=== PATIENT | male | born 1960 | race Caucasian/White ===

== ENCOUNTER 2018-08-30 02:13 | Outpatient (CLI) | payer MEDICAID, SELFPAY ==
[2018-08-30 09:20] LABS: ALT 61 U/L (12-78); AST 55 U/L (15-37); Alkaline Phosphatase 187 U/L (46-116); Anion Gap 7.3 mmol/L (3-11); Bilirubin, Total 0.5 mg/dL (0.2-1.0); CO2 29.7 mmol/L (21.0-32.0); CREATININE 0.95 mg/dL (0.70-1.30); Chloride 98 mmol/L (98-107); Glucose 87 mg/dL (70-100); Potassium 4.2 mmol/L (3.5-5.1); Sodium 135 mmol/L (136-145)
--- NOTE | 2018-08-30 09:55 | DI.CTLCSR_ITS ---
SYMPTOMS/DIAGNOSIS: CURRENT SMOKER, F17.[address] FOR LUNG CANCER SCREENING: A low dose exam was performed. There are no prior comparison exams. There are no suspicious pulmonary nodules. No infiltrates, pleural or pericardial effusions or adenopathy is seen. There are coronary artery calcifications and minimal aortic calcifications. There is mild bilateral gynecomastia. There are mild emphysematous changes greatest at the lung apices. There is minimal scarring in the inferior lingula. Prominent osteophytes are seen in the spine. IMPRESSION: Lung Rads Category I. Continued annual screening CT is recommended.
--- NOTE | 2018-08-30 10:06 | DI.CT_ITS ---
SYMPTOMS/DIAGNOSIS: ENLARGED LIVER ABDOMEN CT: There are no prior comparison exams. Images were performed from the lung bases through the aortic bifurcation after IV contrast. Arterial and venous phase exams were performed. The liver shows heterogeneous decreased attenuation throughout. The liver appears mildly enlarged. There is some enlargement of the caudate lobe. No focal liver lesions or biliary dilatation is seen. The spleen is normal in size. The gallbladder appears normal. The pancreas, adrenals and kidneys are unremarkable. There are mildly enlarged lymph nodes in the anna hepatis and para-aortic region. The findings could be infectious or inflammatory. No varices are identified. The aorta is normal in diameter and shows calcification. There is no evidence of ascites. The visualized portions of the bowel are unremarkable. IMPRESSION: Mildly enlarged heterogeneous liver could be secondary to fatty infiltration or early cirrhosis. Infectious cause such as hepatitis could also be considered. No focal mass or biliary dilatation is seen.
[2018-08-30] MEDS: Omnipaque 350 MG/ML 100 ML BTL IJ (10:20)
== END 2018-08-30 02:33 ==
PROVIDERS: PCP General Practice; Visit Provider General Practice
DX: I25.10 Atherosclerotic heart disease of native coronary artery without angina pectoris (principal); I10 Essential (primary) hypertension; R16.0 Hepatomegaly, not elsewhere classified; F17.210 Nicotine dependence, cigarettes, uncomplicated; J43.9 Emphysema, unspecified; J98.4 Other disorders of lung; Z12.2 Encounter for screening for malignant neoplasm of respiratory organs
CPT/HCPCS: 80051; 82947; G0297; 74160; 82247; 82565; 84075; 84450; 84460; J3490

== ENCOUNTER 2018-11-04 06:00 | Day surgery (SDC) | payer MEDICAID, SELFPAY ==
--- NOTE | 2018-11-04 06:17 | W.COLOREPORT ---
Date of service: 11/04/18 Time of Service: : Colonoscopy Report Date of procedure: 11/04/18 Pre-op diagnosis general: Hx of polyps Post-op diagnosis procedure note: other (10 Polyps and sigmoid diverticulosis) Procedure: Colonoscopy with polypectomy by hot snare and forceps Surgeon: Miranda Kenny Anesthesia proc note operative: other (General/ ASA 2/ Tien Mchugh, ANDREW) Estimated blood loss (mL): 5 Pathology: other (10 polyps) Complications: None Disposition: same day Indications: Mr. Gordillo is a pleasant 57 year old male who was seen in the office for a repeat colonoscopy. He was noted to have 3 Tubular adenomas in 2013. Risks, benefits and complications have been reviewed. Complications include but are not limited to bleeding, pain, perforation, missed small lesion/polyp, sore throat, aspiration and adverse reaction to the medications. Questions were entertained and answered to their satisfaction and they wished to proceed. No guarantees were given or implied. Prep: Miralax/Dulcolax Procedure Start Time: :27 Procedure End Time: 08:38 Retraction Time: 68 minutes Findings: Multiple sessile polyps and mild diverticulosis Procedure Description: After informed consent was obtained the patient was taken to the procedure room and placed in a left decubitous position. Monitors were applied and a time out was done. The patients name, date of , procedure, allergies to medications and metal in their body was reviewed. The patient was then sedated. Once sedated and comfortable a rectal exam was done. External exam was normal. Internal exam revealed a normal sphincter tone and no palpable masses. The prostate smooth. The scope was then introduced and retro-flexed. No internal hemorrhoids were identified. There was one small polyps identified. The scope was then advanced to the cecum without difficulty. The TI and appendiceal orifice were identified. The prep was adequate. The scope was then slowly retracted over 68 minutes back into the rectum. Polyps were removed with a hot snare in the ascending colon X1 and with cold forceps in the ascending colon x1, Transverse colon X1, Descending colon X1, Sigmoid colon X2, rectal X1. The scope was removed and the patient was woken up and taken back to Same day surgery in stable condition. The patient tolerated the procedure well and there were no immediate complications. Follow up: The patient should follow up in 3 years unless they develop changes in bowel habits or other new gastrointestinal complaints.
--- NOTE | 2018-11-04 06:20 | W.PM.DSUDISC ---
Discharge Plan Disposition Patient Disposition: HOME Condition: Good Discharge Details Reason For Visit: Colonoscopy Attending Provider: iMranda Kenny Primary Care Provider: Tien Palafox Home Meds and New Rx's Prescriptions: Continued aspirin 81 mg tablet,delayed release (DR/EC) 81 mg PO DAILY RF: 0 atorvastatin [Lipitor] 20 mg tablet 20 mg PO DAILY RF: 0 lisinopril 5 mg tablet 5 mg PO DAILY RF: 0 metoprolol succinate 100 mg cap,sprinkle,ER 24hr dose pack 100 mg PO DAILY RF: 0 Discontinued polyethylene glycol 3350 17 gram/dose powder 238 g PO ONCE Qty: 238 RF: 0 bisacodyl [Dulcolax (bisacodyl)] 5 mg tablet,delayed release (DR/EC) 5 mg PO ONCE Qty: 4 RF: 0 Discharge Instructions Instructions: Colonoscopy (DC), Colorectal Polyps (DC), Diverticulosis (DC) Additional Instructions: Findings: 10 polyps Diverticulosis Follow up: 3 years most likely Please call if you develop: fevers >101.5 Nausea or Vomiting Abdominal pain that is not transient DAY SURGERY UNIT POST COLONOSCOPY INSTRUCTIONS 1. Because there will be medication in your system for the next 24 hours, you may feel a little sleepy. Your coordination will be affected. Therefore: a. Do not drive or operate dangerous equipment for 24 hours. b. Do not drink alcohol beverages for 24 hours (not even beer). c. Plan to go home and rest for the day. 2. Generally there are no restrictions on your activity after a day or so has gone by, but you may feel a bit fatigued for a few days. 3 After you arrive home you may have a light meal and return to a normal diet as you can tolerate it without feeling sick to your stomach. 4. After surgery, you may feel pain or discomfort. This should be only transient, but if it persists please contact your doctor. 5. If there are any questions regarding the findings of your procedure, please feel free to contact your doctor. 6. If you are unable to contact your doctor with a problem, contact the hospital at [phone]. 7. Continue all your regular medications unless directed otherwise. I understand the above instructions and have no questions. Signature of Patient or Responsible Adult Escort Date/Time Name of Responsible Adult Escort Signature of Nurse Date/Time Activity:: Activity as Tolerated Diet:: High Fiber diet Discharge Orders Discharge Orders: Discharge Order (Routine); Ordered 11/04/18 Ordered By: Miranda Kenny DS: Diagnosis Discharge Diagnosis (1) S/P colonoscopy: Status: Acute (2) Colorectal polyps: Status: Acute (3) Diverticulosis: Status: Acute
[2018-11-04 06:21] VITALS: BP 126/80; PULSE 81; RESP 16; TEMP 36.8; O2SAT 98
[2018-11-04] MEDS: Lactated Ringers 1,000 ML 80 ML IV (06:55)
--- NOTE | 2018-11-04 07:38 | BOWEL_PTH ---
PATIENT: ADRIANA DOAN LOC: [facility] U#:[id number] AGE/SX: 57/M ROOM: RE11/04/[address]: Miranda Kenny MD : [id number] BED: DIS: 11/04/2018 SPEC #: [id number] RECD: 11/04/18 12:18 STATUS: GURVINDER REQ #: [id number] CHANDLER: 11/04/18 07:[address]: Miranda Kenny DEPT: Surgical Specimen RECD BY: Jodi Wheeler ENTERED: 11/04/18 12:22 SP TYPE: Bowel OTHR DR: Tien Palafox Tissues: 1 - BIOPSY BOWEL 2 - BIOPSY BOWEL 3 - BIOPSY BOWEL 4 - BIOPSY BOWEL 5 - BIOPSY BOWEL Procedures: GROSS AND MICRO LEVEL 4 Comments: [id number]
[2018-11-04 09:10] VITALS: BP 116/72; PULSE 81; RESP 16; TEMP 36.3; O2SAT 97
== END 2018-11-04 09:43 | disposition home or self-care (01) ==
PROVIDERS: PCP General Practice; Visit Provider Surgery
PROC: 0DJD8ZZ Inspection of Lower Intestinal Tract, Via Natural or Artificial Opening Endoscopic (ICD-10-PCS; CPT 45378; principal; 2018-11-04 07:30)
DX: Z12.11 Encounter for screening for malignant neoplasm of colon (principal); D12.2 Benign neoplasm of ascending colon; D12.3 Benign neoplasm of transverse colon; D12.5 Benign neoplasm of sigmoid colon; K62.1 Rectal polyp; K57.30 Diverticulosis of large intestine without perforation or abscess without bleeding; Z86.010 Personal history of colon polyps; F17.210 Nicotine dependence, cigarettes, uncomplicated; I10 Essential (primary) hypertension
CPT/HCPCS: 45385; 45380; 88305; 93005; 93010; J2250